=== PATIENT | female | born 1965 | race American Indian/Alaskan Native ===

== ENCOUNTER 2022-05-04 00:10 | Emergency (ER) | payer SELFPAY ==
[2022-05-04 01:08] VITALS: BP 186/88
[2022-05-04] MEDS ORDERED: ASPIRIN 325 MG TAB PO ONE (01:11)
--- NOTE | 2022-05-04 01:48 | XRay Report ---
CHEST 2 VIEWS INDICATION: CHEST PAIN. COMPARISON: None. FINDINGS: Support devices: None. Heart: Within normal limits. Lungs/Pleura: No acute air space or interstitial disease. No significant pleural effusion. IMPRESSION: No acute findings. . Signer Name: Tashi Gutiérrez MD Signed: 05/04/2022 1:43 AM Workstation Name: [id number]
[2022-05-04 01:49] LABS: Basophils % (Auto) 0.8 % (0.0-1.8); Eosinophils # (Auto) 0.1 K/mm3 (0.0-0.4); Eosinophils % (Auto) 2.1 % (0.0-4.3); Hematocrit 40.3 % (30.3-42.9); Hemoglobin 13.1 gm/dl (10.1-14.3); Lymphocytes # (Auto) 1.4 K/mm3 (1.2-5.4); Lymphocytes % (Auto) 28.1 % (13.4-35.0); Mean Corpuscular HGB Conc 33 % (30-34); Mean Corpuscular Volume 84 fl (79-97); Monocytes # (Auto) 0.3 K/mm3 (0.0-0.8); Platelet Count 285 K/mm3 (140-440); Red Blood Count 4.77 M/mm3 (3.65-5.03); Red Cell Distribution Width 14.3 % (13.2-15.2)
[2022-05-04 02:10] LABS: Alanine Aminotransferase 10 units/L (7-56); Albumin 4.6 g/dL (3.9-5); Blood Urea Nitrogen 9 mg/dL (7-17); Calcium 9.7 mg/dL (8.4-10.2); Hemolysis Index 3
[2022-05-04 02:33] LABS: BUN/Creatinine Ratio 13
--- NOTE | 2022-05-05 08:55 | Electrocardiograph Report ---
[facility] Test Date: 2022-05-04 Test Time: 00:38:27 Pat Name: MATTHEW KELLY Department: Room: Gender: F Senior Reservations Agent: LUIS FELIPE : 1965 Requested By: ED DOC Order Number: [id number] Reading MD: Miguel A Romo Measurements Intervals [place] Rate: 81 P: 79 HI: 151 QRS: 8 QRSD: 88 T: 14 QT: 405 QTc: 470 Interpretive Statements Sinus rhythm LAE, consider biatrial enlargement Left ventricular hypertrophy No previous ECG available for comparison Electronically Signed On 05-05-2022 8:55:18 EDT by Miguel A Romo
== END 2022-05-05 00:03 | disposition left against medical advice (07) ==
LOC: ED 00:10
DX: R07.89 Other chest pain (principal); Z53.21 Procedure and treatment not carried out due to patient leaving prior to being seen by health care provider
CPT/HCPCS: 36415; 71046; 80053; 84484; 85025; 93005